=== PATIENT | female | born 1985 | race Caucasian/White ===

== ENCOUNTER 2018-11-30 08:17 | Emergency (ER) | payer OTHER ==
--- NOTE | 2018-11-30 08:26 | ED Physician Documentation ---
PD HPI HEADACHE - Stated complaint Stated Complaint: MIGRAINE - History obtained from History obtained from: Patient - History of Present Illness Timing - onset: How many days ago (4) Timing - onset during: Light activity Timing - duration: Days (4) Timing - details: Gradual onset, Still present Worst headache ever?: Worst headache ever? (has not had migraines in the past, but is not feeling that it is severe, but is worst headache.) Location: Front Quality: Throbbing, Aching, Tightness Associated symptoms: Nausea, Other (light sensitive). No: Fever, Stiff neck, Vomiting, Weakness, Numbness, Vision changes Improved by: Rest, Dark room. No: Meds (tried excedrin) Worsened by: Light, Noise Contributing factors: No: Hypertension, Recent illness, Trauma Similar symptoms before: Has not had sx before Recently seen: Not recently seen, Other (was stationed in [facility] [address] [facility] and flew back a week prior to onset headache. Did not feel that she had headache on the flight, nor got URI symptoms.) Review of Systems Constitutional: denies: Fever, Chills, Myalgias Nose: denies: Rhinorrhea / runny nose, Congestion, Sinus pressure / pain Throat: denies: Sore throat Respiratory: denies: Cough PD PAST MEDICAL HISTORY - Past Medical History Past Medical History: No - Present Medications Home Medications: Ambulatory Orders Medication Instructions Recorded Confirmed Dextroamphetamine/Amphetamine 10 mg PO 11/30/18 11/30/18 [Adderall 10 mg Tablet] Hydrocodone/Acetaminophen [Warba 1 each PO Q6H PRN #12 tablet 11/30/18 5-325 Tablet] Ondansetron Odt [Zofran] 4 mg TL Q6H PRN #15 tablet 11/30/18 SUMAtriptan succinate [Sumatriptan 50 mg PO ONCE PRN #5 tablet 11/30/18 Succinate] dexAMETHasone [Decadron] 4 mg PO DAILY #5 tablet 11/30/18 - Allergies Allergies/Adverse Reactions: Allergies Allergy/AdvReac Type Severity Reaction Status Date / Time No Known Drug Allergies Allergy Verified 11/30/18 08:27 - Social History Does the pt smoke?: No Does the pt drink ETOH?: No Does the pt have substance abuse?: No - Family History Family history: reports: Other (migraines). denies: Cerebral aneurysm PD ED PE NORMAL - Vitals Vital signs reviewed: Yes - General General: Alert and oriented X 3, No acute distress, Well developed/nourished - HEENT HEENT: PERRL, EOMI, Moist mucous membranes, Pharynx benign, Other (some frontal tenderness to percussion) - Neck Neck: Supple, no meningeal sign, No adenopathy - Cardiac Cardiac: RRR, No murmur - Respiratory Respiratory: Clear bilaterally - Abdomen Abdomen: Soft, Non tender - Derm Derm: Normal color, Warm and dry - Extremities Extremities: No tenderness to palpate, Normal ROM s pain, No edema, No calf tenderness / cord - Neuro Neuro: Alert and oriented X 3, pruner 2-12 intact, No motor deficit, No sensory deficit, Normal speech, Other Eye Opening: Spontaneous Motor: Obeys Commands Verbal: Oriented GCS Score: 15 Results - Vitals Vitals: Vital Signs - 24 hr 11/30/18 11/30/18 08:25 09:40 Temperature 37.2 C Heart Rate 83 82 Respiratory 18 18 Rate Blood Pressure 126/71 102/68 O2 Saturation 96 985 H Oxygen O2 Source Room air PD MEDICAL DECISION MAKING - ED course Complexity details: re-evaluated patient (headache mostly improved with Toradol, ZOfran, and Imitrex.), considered differential (seems migraine like. No red flags. Shared decision to treat as migraine and see if good response and not seeming to need tests/imaging at this point. ), d/w patient Departure - Departure Disposition: 01 Home, Self Care Clinical Impression: Migraine headache without aura Qualifiers: Status migrainosus presence: with status migrainosus Intractability: not intr actable Qualified Code(s): G43.001 - Migraine without aura, not intractable, with status migrainosus Condition: Stable Record reviewed to determine appropriate education?: Yes Instructions: ED Headache Migraine Follow-Up: ANUJ DAS III, MD [Primary Care Provider] - Prescriptions: dexAMETHasone [Decadron] 4 mg PO DAILY #5 tablet Hydrocodone/Acetaminophen [Warba 5-325 Tablet] 1 each PO Q6H PRN #12 tablet PRN Reason: Pain Ondansetron Odt [Zofran] 4 mg TL Q6H PRN #15 tablet PRN Reason: Nausea / Vomiting SUMAtriptan succinate [Sumatriptan Succinate] 50 mg PO ONCE PRN #5 tablet PRN Reason: Migraine Comments: Hopefully this is an isolated migraine and you do not get others. It may take a day or so for her to drift away entirely and the steroid should have an effect through the day today. Commonly would continue the steroids for a few days until the headache is completely better. Ondansetron if needed for nausea. Add Excedrin or Tylenol for residual headache. Add hydrocodone if needed for worse headache. For subsequent similar headaches, you can try sumatriptan (Imitrex) and see if it works for it. Subsequent headaches can be unpredictable as to whether he will have more or the frequency of them. Follow-up with your primary care if you have a repetitive pattern of them. Forms: Activity restrictions Discharge Date/Time: 11/30/18 09:45
[2018-11-30] MEDS ORDERED: ONDANSETRON ODT 4 MG TABLET TL STA (08:40)
[2018-11-30] MEDS ORDERED: SUMAtriptan 6 MG/0.5 ML VIAL SUBQ STA (08:40)
[2018-11-30] MEDS ORDERED: KETOROLAC 30 MG/ML VIAL IM STA (08:40)
[2018-11-30 09:40] VITALS: BP 102/68
== END 2018-11-30 09:45 | disposition home or self-care (01) ==
LOC: ED 08:17
DX: G43.001 Migraine without aura, not intractable, with status migrainosus (principal)
CPT/HCPCS: 96372; 99284; Q0162

== ENCOUNTER 2020-02-05 10:45 | Outpatient (CLI) | payer OTHER ==
[2020-02-05 11:09] VITALS: BP 118/74
[2020-02-05 12:05] LABS: BILIRUBIN,URINE NEGATIVE (NEGATIVE); GLUCOSE, URINE (UA) NEGATIVE (NEGATIVE); KETONES,URINE (UA) NEGATIVE (NEGATIVE); LEUKOCYTE ESTERASE, URINE NEGATIVE (NEGATIVE); NITRITE,URINE NEGATIVE (NEGATIVE); OCCULT BLOOD,URINE NEGATIVE (NEGATIVE); PH,URINE 7.5 PH (5.0-7.5); PROTEIN,URINE NEGATIVE (NEGATIVE); UROBILINOGEN,URINE 0.2 (NORMAL) E.U./dL (NORMAL)
[2020-02-05 12:06] LABS: CLARITY,URINE CLEAR (CLEAR)
[2020-02-05 13:57] LABS: BASOPHILS # (AUTO) 0.1 10^3/uL (0.0-0.1); BASOPHILS % (AUTO) 0.5 %; EOSINOPHILS # (AUTO) 0.2 10^3/uL (0.0-0.7); EOSINOPHILS % (AUTO) 2.2 %; HGB - HEMOGLOBIN 10.6 g/dL (12.0-16.0); LYMPHOCYTES # (AUTO) 1.6 10^3/uL (1.5-3.5); LYMPHOCYTES % (AUTO) 16.4 %; MEAN CORPUSCULAR HEMOGLOBIN 26.8 pg (27.0-31.0); MEAN CORPUSCULAR HGB CONC 31.4 g/dL (32.0-36.0); MEAN CORPUSCULAR VOLUME 85.4 fL (81.0-99.0); MEAN PLATELET VOLUME 11.1 fL (7.9-10.8); MONOCYTES % (AUTO) 9.9 %; NEUTROPHILS % (AUTO) 70.5 %; PLT - PLATELET COUNT 194 10^3/uL (130-450); RED BLOOD COUNT 3.96 10^6/uL (4.20-5.40); RED CELL DISTRIBUTION WIDTH 12.6 % (12.0-15.0); WHITE BLOOD COUNT 9.9 x10^3/uL (4.8-10.8)
--- NOTE | 2020-02-05 15:06 | PROVIDER PROGRESS NOTE ---
- HPI Chief Complaint: Other Current : Current EDU 04/14/20 Gestation 30 Weeks and 1 Days 3 Para 2 Vital Signs Temperature 98.8 F 02/05/20 11:05 Heart Rate 87 02/05/20 11:05 Respiratory Rate 22 02/05/20 11:05 Blood Pressure 118/74 02/05/20 11:05 O2 Saturation 98 02/05/20 11:05 Temperature 98.8 F 02/05/20 11:05 Heart Rate 87 02/05/20 11:05 Respiratory Rate 22 02/05/20 11:05 Blood Pressure 118/74 02/05/20 11:05 O2 Saturation 98 02/05/20 11:05 - Exam Patient is a 35 yo at 30+1 wga with a Mo/Di twin gestation and A1DM here with RLQ pain Patient is followed by Dr. Jose Rodriguez. She has a twin gestation of 2 male infants. Hx of two prior c-sections. She reports having sharp stabbing RLQ pain and is here for assessment. No fever, chills, nausea.. No VB, LOF, or contractions. Endorses FM. Pain starts at the right flank and proceeds down to the right side. No hx of kidney stones. No hx of appendectomy. 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 Hx of cardiac abnormality. Adopted out. G2 2016 CS at 39+0 wga Blood type not seen in records Glucola 158 3H GTT 192 Undergoing weekly TTS assessments and growth us every 28-32 days Mild polyhydramnios in Twin B at 25 weeks GEN: NAD HEAD: NCAT EYES: No scleral icterus or conjunctival injection NECK: No cervical LAD or TM CV: RRR RESP: CTAB, normal effort ABD: gravid, S&NT/ND. No significant TTP BACK: No clear CVA tenderness PSYCH: appropriate affect NEURO: alert and oriented, normal gait and coordination EXT: WWP - Procedures OB Procedure Performed: NST Diagnosis/Indication for NST: Multiple gestation NST Procedure: EFM started at 10:59, ended at 12:40 Twin A: 145 mod christina 25x15 accels no decels Twin B: 135 mod christina 10x10 and 15x15 accels. One late appearing variable with 30 minutes of Cat I/AGA tracing to follow. TOCO: quiet Service Date of procedure: 02/05/20 - Plan Plan: Patient is a 35 yo at 30+1 wga with a Mo/Di twin gestation and A1DM here with RLQ pain 1) CBC wnl and without leukocytosis 2) Reasuring PE UA wnl Prelim read on us showed right sided hydronephrosis and hydroureter without same degree of hydronephrosis on left Appendix wnl Presentation c/w likely nephrolithiasis Pain mild at present, does not require pain medication other than tylenol per patient Recommend oral hydration Provided with rx for tamsulosin to assist with stone passage Reviewed warning signs for return to triage
--- NOTE | 2020-02-05 15:41 | Ultrasound Report ---
PROCEDURE: Abdomen Limited INDICATIONS: - assess for appendicitis TECHNIQUE: Real-time focused scanning was performed of the abdomen, with image documentation. COMPARISON: None available FINDINGS: The appendix was not visible. There is no free fluid or lymphadenopathy in the right lower quadrant. No focal tenderness on exam. Incidental note is made of mild right hydronephrosis and hydroureter. IMPRESSION: 1. Nonvisualization of the appendix. If there is still concern for acute appendicitis, MR without con trast could be considered. 2. Right hydroureteronephrosis, most likely secondary to compression by gravid uterus. Correlate with UA to determine clinical significance. 3. Preliminary results given by the technologist to the ordering provider.. Reviewed by: Lolita Dowling MD on 02/05/2020 3:40 PM PST Approved by: Lolita Dowling MD on 02/05/2020 3:40 PM PST Station ID: [id number]
== END 2020-02-05 15:15 | disposition home or self-care (01) ==
LOC: WFO 10:45 → FBP 10:48 → WFO 15:15
PROVIDERS: ATTEND Obstetrics & Gynecology
DX: O30.033 Twin pregnancy, monochorionic/diamniotic, third trimester (principal); Z3A.30 30 weeks gestation of pregnancy; O99.891 Other specified diseases and conditions complicating pregnancy; N13.30 Unspecified hydronephrosis; O98.513 Other viral diseases complicating pregnancy, third trimester; B00.1 Herpesviral vesicular dermatitis; O34.219 Maternal care for unspecified type scar from previous cesarean delivery
CPT/HCPCS: 81001; 81003; 85025; 87086; 99213

== ENCOUNTER 2020-02-13 11:35 | Emergency (ER) | payer OTHER ==
--- NOTE | 2020-02-13 12:29 | ED Physician Documentation ---
History of Present Illness - Stated complaint Stated Complaint: ABD PX - Chief complaint Chief Complaint: Abd Pain - History obtained from History obtained from: Patient - History of Present Illness Timing: How many weeks ago (1) Pain level max: 7 Pain level now: 2 - Additonal information Additional information: 35-year-old female, 31 weeks with twins, presents to the emergency department with ongoing right flank pain. Worse with lying flat or on her right side, better with lying on her left side. She was seen about a week ago and had an ultrasound that showed hydroureter and hydronephrosis on the right side from compression of the ureter by the gravid uterus. She had a negative urinalysis at that time. No history of kidney stones. No fevers. No chills. No vomiting. No vaginal bleeding. No discharge. 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 - Present Medications Home Medications: Ambulatory Orders Medication Instructions Recorded Confirmed Tamsulosin [Flomax] 0.4 mg PO DAILY 30 Days #30 capsule 02/05/20 02/13/20 Aspirin [Aspirin EC] 81 mg PO DAILY 02/13/20 02/13/20 - Allergies Allergies/Adverse Reactions: Allergies Allergy/AdvReac Type Severity Reaction Status Date / Time No Known Drug Allergies Allergy Verified 02/13/20 11:36 - Social History Does the pt smoke?: No Smoking Status: Never smoker Does the pt drink ETOH?: No Does the pt have substance abuse?: No - Immunizations Immunizations are current?: Yes - POLST Patient has POLST: No PD ED PE NORMAL - Vitals Vital signs reviewed: Yes - General General: Alert and oriented X 3, No acute distress - HEENT HEENT: Moist mucous membranes - Neck Neck: Supple, no meningeal sign - Cardiac Cardiac: RRR, Strong equal pulses - Respiratory Respiratory: No respiratory distress, Clear bilaterally - Abdomen Abdomen: Soft, Non tender, Other (Gravid abdomen) - Back Back: No CVA TTP - Derm Derm: Warm and dry - Extremities Extremities: No edema, No calf tenderness / cord - Neuro Neuro: Alert and oriented X 3 - Psych Psych: Normal mood, Normal affect Results - Vitals Vitals: Vital Signs - 24 hr 02/13/20 02/13/20 02/13/20 11:36 11:51 14:18 Temperature 36.5 C 36.8 C Heart Rate 99 113 H 84 Respiratory 22 18 18 Rate Blood Pressure 121/74 116/67 116/65 O2 Saturation 97 97 99 Oxygen O2 Source Room air - Labs Labs: Laboratory Tests 02/13/20 02/13/20 02/13/20 12:25 12:25 14:00 WBC 9.1 RBC 3.84 L Hgb 10.2 L Hct 31.9 L MCV 83.1 MCH 26.6 L MCHC 32.0 RDW 12.8 Plt Count 185 MPV 11.4 H Neut # (Auto) 6.5 Lymph # (Auto) 1.4 L [place] # (Auto) 1.0 Eos # (Auto) 0.1 Baso # (Auto) 0.1 Absolute Nucleated RBC 0.00 Nucleated RBC % 0.0 Sodium 137 Potassium 3.9 Chloride 106 Carbon Dioxide 22 Anion Gap 9.0 BUN 8 Creatinine 0.6 Estimated GFR (MDRD) 114 Glucose 93 Calcium 8.8 Total Bilirubin 0.5 AST 15 ALT 11 Alkaline Phosphatase 97 Total Protein 6.5 L Albumin 2.6 L Globulin 3.9 Albumin/Globulin Ratio 0.7 L Lipase 34 Urine Color YELLOW Urine Clarity CLEAR Urine pH 6.5 Ur Specific Graff <=1.005 Urine Protein NEGATIVE Urine Glucose (UA) NEGATIVE Urine Ketones TRACE Urine Occult Blood NEGATIVE Urine Nitrite NEGATIVE Urine Bilirubin NEGATIVE Urine Urobilinogen 0.2 (NORMAL) Ur Leukocyte Esterase NEGATIVE Ur Microscopic Review NOT INDICATED Urine Culture Comments NOT INDICATED PD MEDICAL DECISION MAKING - ED course Complexity details: reviewed old records, reviewed results, re-evaluated patient, considered differential, d/w patient, d/w eco industrial development consultant ED course: 35-year-old female presents to the emergency department with right-sided flank pain ongoing. She is 31 weeks with twins. Her last ultrasound a week ago revealed right-sided hydroureter from compression secondary to her gravid uterus. She does feel better lying on the left side. No evidence of infection. No evidence of ureteral stone. NST does not show any abnormalities. Dr. Iqbal from OB saw the patient as well. The patient will follow up in clinic for further care. Patient counseled regarding signs and symptoms for which I believe and urgent re-evaluation would be necessary. Patient with good understanding of and agreement to plan and is comfortable going home at this time This document was made in part using voice recognition software. While efforts are made to proofread this document, sound alike and grammatical errors may occur. Departure - Departure Disposition: 01 Home, Self Care Clinical Impression: hydronephrosis during in third trimester, antepartum Condition: Good Instructions: ED Care Follow-Up: your,doctor in 1 week [Other] Comments: Return if you worsen. Laying on your left side should help. This appears to be due to compression of your ureter from the uterus.
[2020-02-13 12:32] LABS: BASOPHILS # (AUTO) 0.1 10^3/uL (0.0-0.1); BASOPHILS % (AUTO) 0.5 %; EOSINOPHILS # (AUTO) 0.1 10^3/uL (0.0-0.7); EOSINOPHILS % (AUTO) 1.2 %; HGB - HEMOGLOBIN 10.2 g/dL (12.0-16.0); LYMPHOCYTES # (AUTO) 1.4 10^3/uL (1.5-3.5); LYMPHOCYTES % (AUTO) 15.5 %; MEAN CORPUSCULAR HEMOGLOBIN 26.6 pg (27.0-31.0); MEAN CORPUSCULAR VOLUME 83.1 fL (81.0-99.0); MEAN PLATELET VOLUME 11.4 fL (7.9-10.8); MONOCYTES % (AUTO) 10.8 %; NEUTROPHILS # (AUTO) 6.5 10^3/uL (1.5-6.6); NEUTROPHILS % (AUTO) 71.3 %; PLT - PLATELET COUNT 185 10^3/uL (130-450); RED BLOOD COUNT 3.84 10^6/uL (4.20-5.40); RED CELL DISTRIBUTION WIDTH 12.8 % (12.0-15.0); WHITE BLOOD COUNT 9.1 x10^3/uL (4.8-10.8)
[2020-02-13 12:43] LABS: ALBUMIN 2.6 g/dL (3.2-5.5); ALBUMIN/GLOBULIN RATIO 0.7 (1.0-2.2); BILIRUBIN,TOTAL 0.5 mg/dL (0.2-1.0); CALCIUM 8.8 mg/dL (8.5-10.3); CREATININE 0.6 mg/dL (0.4-1.0); TOTAL PROTEIN 6.5 g/dL (6.7-8.2)
--- NOTE | 2020-02-13 13:03 | HISTORY & PHYSICAL EXAMINATION ---
DATE OF SERVICE: 02/13/2020 Physician: Gianfranco Iqbal MD IDENTIFICATION: The patient is a 35-year-old. She is a G3, P2. She is currently 31 and 2 days EGA with twin gestations mono-di. She has A1 diabetes. CHIEF COMPLAINT: Right-sided abdominal pain. HISTORY OF PRESENT ILLNESS: The patient developed on Sunday right-sided abdominal pain. She stat es it is worse when she lies down on her back as well as stands up. It is better when she lies on he r left hand side. The pain she is currently experiencing is roughly 2/10. [facility] , at which time she had an ultrasound, which showed evidence of dilated rig ht ureter. The appendix was not seen. She denies vomiting, diarrhea or change in bowel habits. She has had some mild nausea. She is currently being seen by a perinatologist, Dr. Garcia at [place]. She was most recently seen yesterday in the clinic there. Her has been complicated with so me GERD at this time as well as gestational diabetes. PAST MEDICAL HISTORY: Unremarkable. She denies any hypertensive or cardiac disease. PAST SURGICAL HISTORY: She has had a previous section in the past. CURRENT MEDICATIONS: She is taking vitamins, folic acid, 81 mg of aspirin, has Flomax as we ll as some form of heartburn medication. Her records from her perinatologist are not available at this time. PHYSICAL EXAM GENERAL: Well-developed, well-nourished female who is obviously gravid. EYES: Pupils are equal with extraocular muscles intact. ABDOMEN: Gravid. There is some vague tenderness on the right side of the abdomen. No evidence of r ebound. Flank tenderness is minimal on the right hand side, if at all. The patient denies any contra ctions. The patient is currently undergoing an NST for both infants. IMPRESSION: 1. A 31 and 2/7 weeks, monochorionic-diamniotic twins. 2. Previous section. 3. Right-sided abdominal pain. Her previous urinalysis did not show any red blood cells. My suspic ion is this will also not show red blood cells. I suspect that she has renal colic as compared to re nal lithiasis. Her labs are pending at this time. PLAN: At this point, we discussed the issues of pain medication as well as positioning. At this poi nt, we discussed the issues of Tylenol for pain control as well as positioning, particularly on the l eft hand side, as this should relieve any pressure on the ureter. She is instructed she needs to fol lowup with her perinatologist. TD: 02/13/2020 12:25
[2020-02-13 14:18] LABS: BILIRUBIN,URINE NEGATIVE (NEGATIVE); GLUCOSE, URINE (UA) NEGATIVE (NEGATIVE); KETONES,URINE (UA) TRACE mg/dL (NEGATIVE); LEUKOCYTE ESTERASE, URINE NEGATIVE (NEGATIVE); NITRITE,URINE NEGATIVE (NEGATIVE); OCCULT BLOOD,URINE NEGATIVE (NEGATIVE); PH,URINE 6.5 PH (5.0-7.5); PROTEIN,URINE NEGATIVE (NEGATIVE); UROBILINOGEN,URINE 0.2 (NORMAL) E.U./dL (NORMAL)
[2020-02-13 14:19] LABS: CLARITY,URINE CLEAR (CLEAR)
[2020-02-13 14:21] VITALS: BP 116/65
== END 2020-02-13 14:39 | disposition home or self-care (01) ==
LOC: ED 11:35
DX: O99.891 Other specified diseases and conditions complicating pregnancy (principal); N13.30 Unspecified hydronephrosis; Z3A.31 31 weeks gestation of pregnancy; O24.419 Gestational diabetes mellitus in pregnancy, unspecified control
CPT/HCPCS: 59025; 80053; 81001; 81003; 83690; 85025; 87086; 99284

== ENCOUNTER 2020-11-19 20:16 | Emergency (ER) | payer OTHER ==
[2020-11-19 20:24] VITALS: BP 126/104
--- NOTE | 2020-11-19 20:49 | ED Physician Documentation ---
PD HPI URI - Stated complaint Stated Complaint: COUGH,CONGESTION - Chief complaint Chief Complaint: Resp - History obtained from History obtained from: Patient - History of Present Illness Timing - onset: How many weeks ago (1) Timing details: Gradual onset Pain level max: 2 (generalized chest discomfort when coughing only) Pain level now: 0 Associated symptoms: Sore throat, Dry cough. No: Fever Improves by: Nothing Worsened by: Other (no exacerbating factors) Similar symptoms before: Has not had sx before Recently seen: Not recently seen - Additional information Additional information: c/o 1 week of cough, mild sore throat, with worsening cough past 2 days. She has multiple sick household contacts (spouse has similar symptoms and two children recently tested positive for RSV). Patient is COVID vaccinated, last dose was approximately April of 2020. Review of Systems Constitutional: denies: Fever, Chills, Sweats Cardiac: reports: Chest pain / pressure (bilateral but only when coughing). denies: Palpitations, Pedal edema, Calf pain Respiratory: reports: Cough. 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 - Present Medications Home Medications: Ambulatory Orders Medication Instructions Recorded Confirmed Tamsulosin [Flomax] 0.4 mg PO DAILY 30 Days #30 capsule 02/05/20 02/13/20 Aspirin [Aspirin EC] 81 mg PO DAILY 02/13/20 02/13/20 Benzonatate [Tessalon] 200 mg PO TID PRN #14 cap 11/19/20 guaiFENesin/CODEINE [Robitussin AC] 5 - 10 ml PO Q6H PRN #100 ml 11/19/20 - Allergies Allergies/Adverse Reactions: Allergies Allergy/AdvReac Type Severity Reaction Status Date / Time No Known Drug Allergies Allergy Verified 02/13/20 11:36 - Social History Does the pt smoke?: No Smoking Status: Never smoker Does the pt drink ETOH?: No Does the pt have substance abuse?: No - Immunizations Immunizations are current?: Yes - POLST Patient has POLST: No PD ED PE NORMAL - Vitals Vital signs reviewed: Yes - General General: Alert and oriented X 3, No acute distress, Well developed/nourished, Other (frequent CALL CENTER COORDINATOR cough during H+P) - HEENT HEENT: Moist mucous membranes, Pharynx benign - Neck Neck: Supple, no meningeal sign - Cardiac Cardiac: RRR, No murmur, No gallop, No rub - Respiratory Respiratory: No respiratory distress, Clear bilaterally Results - Vitals Vitals: Vital Signs - 24 hr 11/19/20 11/19/20 20:19 21:45 Temperature 36.8 C 36.8 C Heart Rate 88 88 Respiratory 18 18 Rate Blood Pressure 126/104 H 126/104 H O2 Saturation 98 98 Oxygen O2 Source Room air - Rads (name of study) chest xray Radiology: Prelim report reviewed, See rad report PD MEDICAL DECISION MAKING - ED course Complexity details: reviewed results, re-evaluated patient, considered differential, d/w patient ED course: c/o CALL CENTER COORDINATOR cough x 1 week but becoming more frequent and feeling "deeper" (per patient) in chest x 2 days. CXR does not demonstrate any abnormalities. COVID test pending although it is noted that she has received both doses of Mumboe COVID vaccination. She is given robitussin AC and tessalon with prescriptions for both of these medications transmitted to her pharmacy I am prescribing a short course of short-acting opioid cough medication for this patient. I have reviewed the patients PACU RN and no concerning findings were noted. I have discussed that the opioids are for short term therapy only, and will not be refilled from the ED. Departure - Departure Disposition: 01 Home, Self Care Clinical Impression: Upper respiratory tract infection Qualifiers: URI type: unspecified URI Qualified Code(s): J06.9 - Acute upper respiratory infection, unspecified Condition: Good Instructions: ED Upper Resp Infec No Abx Tx Follow-Up: LIZETH REA DO [Primary Care Provider] - Prescriptions: guaiFENesin/CODEINE [Robitussin AC] 5 - 10 ml PO Q6H PRN #100 ml PRN Reason: Cough Benzonatate [Tessalon] 200 mg PO TID PRN #14 cap PRN Reason: Cough Comments: Prescriptions for tessalon (cough medication) and robitussin AC (codeine cough syrup) have been electronically submitted to [facility] pharmacy in [place] You have a COVID test pending. You need to self-quarantine until the result is done and negative. Do not leave your house. Do not get near anybody. The results should be done in 48 to 72 hours. We will call with a positive result; the fastest way to get a negative result for confirmation though is to go to the hospital website at [email or web address], click on the [facility] tab and sign up for the patient portal. If any friends or family get sick and would like to have a COVID test done, but do not have signs or symptoms that would necessitate being hospitalized, we encourage testing through our coronavirus swabbing station, call [phone] to schedule an appointment I am prescribing a short course of narcotic pain medication for you. These are potentially dangerous and addictive medications that should be used carefully. These medications may constipate you. Take an rskb-yqi-hgrrxue stool softener (docusate) twice daily with plenty of water while taking these medications. If you go 24 hours without a bowel movement, take [id number]-[id number] miralax, per package instructions. Do not drink or drive while taking these medications. If you received narcotic or sedating medications while in the emergency department, do not drive for 24 hours. Store this medication in a safe, secure place and out of reach of children. It is a violation of federal law to give or sell this medication to another person or to use in a manner other than prescribed. The ED will not refill narcotic prescriptions, including prescriptions lost or stolen. To dispose of unwanted medications: 1. [facility] at [address] in [place] has a medication drop box. They accept prescription medications (in pill form) Sunday through Sunday 9:00 a.m. to 5:00 p.m. 2. The [facility] [employer] accepts prescription medications (in pill form only) for disposal year round. Call for more information. 3. Contact the [facility] for the next [facility] sponsored prescription drug collection event. , [phone], or [phone]; Discharge Date/Time: 11/19/20 21:47
[2020-11-19] MEDS ORDERED: BENZONATATE 100 MG CAPSULE PO STA (21:06)
[2020-11-19] MEDS ORDERED: guaiFENesin/CODEINE 5 ML UDC PO STA (21:06)
--- NOTE | 2020-11-19 21:37 | XRAY Report ---
PROCEDURE: Chest 2 View X-Ray INDICATIONS: cough, dyspnea TECHNIQUE: 2 view(s) of the chest. COMPARISON: None. FINDINGS: Surgical changes and devices: None. Lungs and pleura: No pleural effusions or pneumothorax. Lungs are clear. Mediastinum: Mediastinal contours are normal. Heart size is normal. Bones and chest wall: No suspicious bony abnormalities. Soft tissues appear unremarkable. IMPRESSION: No acute process. Reviewed by: Gildardo Varghese MD on 11/19/2020 9:36 PM PDT Approved by: Gildardo Varghese MD on 11/19/2020 9:36 PM PDT Station ID: [id number]
== END 2020-11-19 21:47 | disposition home or self-care (01) ==
LOC: ED 20:16
DX: J06.9 Acute upper respiratory infection, unspecified (principal); Z20.822 Contact with and (suspected) exposure to COVID-19; Z79.82 Long term (current) use of aspirin
CPT/HCPCS: 71046; 87635; 99284; A9270

== ENCOUNTER 2021-07-31 07:31 | Emergency (ER) | payer OTHER ==
[2021-07-31] MEDS ORDERED: DEXAMETHASONE 10 MG/ML VIAL PO STA (09:24)
[2021-07-31] MEDS ORDERED: CHERRY SYRUP 10 ML UDC PO ONE (09:24)
--- NOTE | 2021-07-31 09:27 | ED Physician Documentation ---
PD HPI HEENT - Stated complaint Stated Complaint: COUGH - Chief complaint Chief Complaint: Heent - History obtained from History obtained from: Patient - History of Present Illness Timing - onset: How many days ago (2) Timing - duration: Days (2) Timing - details: Gradual onset, Still present Location: Sinuses Improves: Medication Worsens: Swalllowing Associated symptoms: Congestion, Rhinorrhea, Facial swelling, Cough Similar symptoms before: Diagnosis (sinusitis) Recently seen: Clinic - Additional information Additional information: 36-year-old Raven Kline developed COVID on June 14. She recovered from that. She developed some aching to her legs and general body aches as well as congestion and cough about 10 days ago. She was tested this week at [facility] for strep and COVID both tests were negative. She felt that she started to improve and then over the last day has developed sinus congestion with pain in her face and worsening of her symptoms worsening sore throat. She has scant yellow phlegm. Review of Systems Constitutional: reports: Chills, Myalgias, Fatigue, Sweats Eyes: denies: Decreased vision Ears: denies: Ear pain Nose: reports: Rhinorrhea / runny nose, Congestion Throat: reports: Sore throat Cardiac: denies: Chest pain / pressure, Palpitations Respiratory: reports: Cough. 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 - Present Medications Home Medications: Ambulatory Orders Medication Instructions Recorded Confirmed Tamsulosin [Flomax] 0.4 mg PO DAILY 30 Days #30 capsule 02/05/20 02/13/20 Aspirin [Aspirin EC] 81 mg PO DAILY 02/13/20 02/13/20 Benzonatate [Tessalon] 200 mg PO TID PRN #14 cap 11/19/20 guaiFENesin/CODEINE [Robitussin AC] 5 - 10 ml PO Q6H PRN #100 ml 11/19/20 Amox/Clav 875/125 [Augmentin] 1 each PO Q12H #20 tablet 07/31/21 Codeine Phosphate/Guaifenesin 5 - 10 ml PO Q6HR PRN #120 ml 07/31/21 [Codeine-Guaifen 10-100 mg/5 ml] - Allergies Allergies/Adverse Reactions: Allergies Allergy/AdvReac Type Severity Reaction Status Date / Time No Known Drug Allergies Allergy Verified 07/31/21 07:59 - Social History Does the pt smoke?: No Smoking Status: Never smoker Does the pt drink ETOH?: No Does the pt have substance abuse?: No - Immunizations Immunizations are current?: Yes - POLST Patient has POLST: No PD ED PE NORMAL - Vitals Vital signs reviewed: Yes (tachy and hypertensive) - General General: Alert and oriented X 3, No acute distress, Well developed/nourished - HEENT HEENT: Atraumatic, PERRL, EOMI, Ears normal, Pharynx benign, Other (sinus point tenderness to the left maxillary sinus ) - Neck Neck: Supple, no meningeal sign, No bony TTP - Cardiac Cardiac: RRR, No murmur - Respiratory Respiratory: No respiratory distress, Clear bilaterally - Abdomen Abdomen: Soft, Non tender - Back Back: No CVA TTP, No spinal TTP - Derm Derm: Normal color, Warm and dry, No rash - Extremities Extremities: No deformity, No edema - Neuro Neuro: Alert and oriented X 3, 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 2-12 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, No motor deficit, No sensory deficit, Other (deep voice) Eye Opening: Spontaneous Motor: Obeys Commands Verbal: Oriented GCS Score: 15 - Psych Psych: Normal mood, Normal affect Results - Vitals Vitals: Vital Signs - 24 hr 07/31/21 07/31/21 07:56 09:45 Temperature 36.0 C L 36.8 C Heart Rate 103 H 79 Respiratory 16 16 Rate Blood Pressure 134/82 H 119/68 O2 Saturation 100 98 Oxygen O2 Source Room air PD MEDICAL DECISION MAKING - ED course Complexity details: considered differential, d/w patient ED course: 36-year-old female with what appears to be a bimodal illness with left maxillary sinusitis currently. We will treat the maxillary sinusitis. She is administered dexamethasone 10 mg orally we will place her on some Augmentin. Departure - Departure Disposition: 01 Home, Self Care Clinical Impression: Sinusitis Qualifiers: Sinusitis location: maxillary Chronicity: acute Recurrence: non-recurrent Qual ified Code(s): J01.00 - Acute maxillary sinusitis, unspecified Condition: Stable Instructions: ED Sinusitis Abx Tx Follow-Up: [facility] [Provider Group] Prescriptions: Codeine Phosphate/Guaifenesin [Codeine-Guaifen 10-100 mg/5 ml] 5 - 10 ml PO Q6HR PRN #120 ml PRN Reason: Cough Amox/Clav 875/125 [Augmentin] 1 each PO Q12H #20 tablet Comments: Raven, Today it looks like you have a secondary infection after recovering from a viral illness. We have e-scribed Augmentin to [facility] in [place]. Use a decongestant while on the antibiotic and expect daily improvement.
[2021-07-31 09:45] VITALS: BP 119/68
== END 2021-07-31 09:58 | disposition home or self-care (01) ==
LOC: ED 07:31
DX: J01.00 Acute maxillary sinusitis, unspecified (principal)
CPT/HCPCS: 99282; A9270

== ENCOUNTER 2021-12-22 08:00 | Outpatient (CLI) | payer OTHER | END 2021-12-22 23:59 | disposition home or self-care (01) | LOC: LAB.N 08:00 | PROVIDERS: ATTEND Registered Nurse | DX: R50.9 Fever, unspecified (principal) | CPT/HCPCS: 87275; 87276 ==

== ENCOUNTER 2022-07-19 08:00 | Outpatient (CLI) | payer OTHER ==
[2022-07-19 11:41] LABS: BILIRUBIN,URINE NEGATIVE (NEGATIVE); GLUCOSE, URINE (UA) NEGATIVE (NEGATIVE); KETONES,URINE (UA) NEGATIVE (NEGATIVE); LEUKOCYTE ESTERASE, URINE MODERATE (NEGATIVE); NITRITE,URINE NEGATIVE (NEGATIVE); OCCULT BLOOD,URINE LARGE (NEGATIVE); PH,URINE 6.5 PH (5.0-7.5); PROTEIN,URINE NEGATIVE (NEGATIVE); UROBILINOGEN,URINE 0.2 (NORMAL) E.U./dL (NORMAL)
[2022-07-19 11:42] LABS: CLARITY,URINE SL. CLOUDY (CLEAR)
[2022-07-19 11:49] LABS: BACTERIA,URINE Few /HPF (None Seen); RBC,URINE 0-5 /HPF (0-5); SQUAMOUS EPITHELIAL CELL,UR FEW Squamous (<= Few); WBC,URINE >25 /HPF (0-5)
== END 2022-07-19 23:59 | disposition home or self-care (01) ==
LOC: LAB.R 08:00
PROVIDERS: ATTEND Emergency Medicine
DX: N39.0 Urinary tract infection, site not specified (principal)
CPT/HCPCS: 81001; 87077; 87086; 87181

== ENCOUNTER 2023-05-14 12:26 | Emergency (ER) | payer OTHER ==
[2023-05-14 12:41] VITALS: BP 128/76
--- NOTE | 2023-05-14 12:54 | ED Physician Documentation ---
PD HPI URI - Stated complaint Stated Complaint: CHEST PX,SOA,COUGH - Chief complaint Chief Complaint: Resp - History obtained from History obtained from: Patient - History of Present Illness Timing - onset: How many days ago (9) Timing duration: Days (9) Timing details: Gradual onset Pain level max: 5 Pain level now: 5 Associated symptoms: Dry cough. No: Fever, Chills, Chest pain, Dyspnea Contributing factors: Sick contact - Additional information Additional information: Patient is a 38-year-old female with sent to the emergency department with a cough for the past 9 days. She was seen at the walk-in clinic 2 days ago, given steroids and inhaler and Tessalon Perles. She states she is continuing to cough. No fevers. No chills. She states that she does have nasal congestion, and a sore throat. She has 3 children at home that are sick as well. She states that it is painful to take a deep breath and cough. Patient states that her COVID, flu and RSV testing was negative 2 days ago. 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 - Present Medications Home Medications: Ambulatory Orders Medication Instructions Recorded Confirmed Benzonatate [Tessalon] 200 mg PO TID PRN #14 cap 11/19/20 05/14/23 guaiFENesin/CODEINE [Robitussin AC] 5 - 10 ml PO Q6H PRN #100 ml 11/19/20 05/14/23 Albuterol Sulf [Ventolin Hfa 1 - 2 puffs INH Q4HR PRN 05/14/23 05/14/23 Inhaler] Amox/Clav 875/125 [Augmentin] 1 tab PO Q12H #20 tablet 05/14/23 Azithromycin [Zithromax] 0 mg PO DAILY #6 tablet 05/14/23 Cetirizine HCl/Pseudoephedrine 1 tab PO BID PRN #20 tab 05/14/23 [Zyrtec-D ER 5 mg-120 mg Tablet] Dextroamphetamine/Amphetamine 10 mg PO DAILY 05/14/23 05/14/23 [Adderall 10 mg Tablet] Dextroamphetamine/Amphetamine 15 mg PO DAILY 05/14/23 05/14/23 [Adderall Xr 10 mg Capsule] Escitalopram [Lexapro] 10 mg PO DAILY 05/14/23 05/14/23 - Allergies Allergies/Adverse Reactions: Allergies Allergy/AdvReac Type Severity Reaction Status Date / Time No Known Drug Allergies Allergy Verified 05/14/23 12:29 - Social History Does the pt smoke?: No Smoking Status: Former smoker Does the pt drink ETOH?: Yes Does the pt have substance abuse?: No - Immunizations Immunizations are current?: Yes - POLST Patient has POLST: No PD ED PE NORMAL - Vitals Vital signs reviewed: Yes - General General: Alert and oriented X 3, No acute distress - HEENT HEENT: Atraumatic, PERRL, Ears normal, Moist mucous membranes, Other (Mild posterior pharyngeal erythema without tonsillar exudates. There is cobblestoning consistent with postnasal drip.) - Neck Neck: Supple, no meningeal sign - Cardiac Cardiac: RRR, Strong equal pulses - Respiratory Respiratory: No respiratory distress, Clear bilaterally - Abdomen Abdomen: Soft, Non tender, Non distended - Derm Derm: Warm and dry, No rash - Neuro Neuro: Alert and oriented X 3 - Psych Psych: Normal mood, Normal affect Results - Vitals Vitals: Vital Signs - 24 hr 05/14/23 05/14/23 12:29 13:00 Temperature 37.2 C Heart Rate 112 H 95 Respiratory 20 18 Rate Blood Pressure 128/76 O2 Saturation 96 Oxygen O2 Source Room air - Rads (name of study) cxr Relevant Findings:: Final report received, See rad report PD Medical Decision Making - ED course Complexity details: reviewed results, re-evaluated patient, considered differential, d/w patient ED course: 38-year-old female with cough for the past 9 days. Possible early pneumonia on chest x-ray. We will treat with antibiotics. Will place on Augmentin and azithromycin. Also placed on Zyrtec and pseudoephedrine. We will continue her Tessalon and albuterol at home. Patient is well-appearing, nontoxic. Afebrile. No hypoxia. No respiratory distress. Patient counseled regarding signs and symptoms for which I believe and urgent re-evaluation would be necessary. Patient with good understanding of and agreement to plan and is comfortable going home at this time This document was made in part using voice recognition software. While efforts are made to proofread this document, sound alike and grammatical errors may occur. Departure - Departure Disposition: Home, Self Care Clinical Impression: Pneumonia Qualifiers: Pneumonia type: due to unspecified organism Laterality: unspecified laterality Lung location: unspecified part of lung Qualified Code(s): J18.9 - Pneumonia, unspecified organism Condition: Good Instructions: ED Pneumonia Adult Follow-Up: LEELEE ROBISON DO [Primary Care Provider] - Prescriptions: Amox/Clav 875/125 [Augmentin] 1 tab PO Q12H #20 tablet Azithromycin [Zithromax] 0 mg PO DAILY #6 tablet Cetirizine HCl/Pseudoephedrine [Zyrtec-D ER 5 mg-120 mg Tablet] 1 tab PO BID PRN #20 tab PRN Reason: nasal congestion Comments: Please follow-up with your doctor as needed for further care. Your chest x-ray does show a possible early pneumonia. Your prescriptions were sent to [facility] in [place]. Continue your current medications as prescribed. Please return if you worsen. Forms: PCP List
[2023-05-14] MEDS: IPRATROPIUM/ALBUTEROL 3 ML NEB INH STA (13:01)
[2023-05-14] MEDS: PSEUDOEPHEDRINE 30 MG TABLET PO STA (13:15)
--- NOTE | 2023-05-14 13:15 | XRAY Report ---
PROCEDURE: Chest 2V INDICATIONS: cough TECHNIQUE: 2 views of the chest were acquired. COMPARISON: None. FINDINGS: Surgical changes and devices: None. Lungs and pleura: Retrocardiac opacity. Mediastinum: Mediastinal contours appear normal. Heart size is normal. Bones and chest wall: No suspicious bony lesions. Overlying soft tissues appear unremarkable. IMPRESSION: Retrocardiac opacity, concerning for pneumonia. Reviewed by: Jeff Lozano MD on 05/14/2023 1:14 PM PDT Approved by: Jeff Lozano MD on 05/14/2023 1:14 PM PDT Station ID: [id number]
[2023-05-14 13:46] VITALS: O2SAT 92
== END 2023-05-14 13:43 | disposition home or self-care (01) ==
LOC: ED 12:26
DX: J18.9 Pneumonia, unspecified organism (principal); Z87.891 Personal history of nicotine dependence; Z79.899 Other long term (current) drug therapy
CPT/HCPCS: 71046; 94640; 99283; A9270

== ENCOUNTER 2023-10-11 07:40 | Outpatient (CLI) | payer OTHER | END 2023-10-11 07:41 | disposition home or self-care (01) | LOC: LAB.N 07:40 | PROVIDERS: ATTEND Physician Assistant | DX: N39.0 Urinary tract infection, site not specified (principal) | CPT/HCPCS: 87086 ==